=== PATIENT | female | born 2000 | race Caucasian/White ===

== ENCOUNTER 2021-12-21 01:39 | Emergency (ER) | payer MEDICAID, SELFPAY ==
--- NOTE | ~2021-12-21 | XR_ITS ---
EXAMINATION: XR SHOULDER, RIGHT CLINICAL INFORMATION: Dislocation COMPARISON: None TECHNIQUE: AP external rotation, Grashey, scapular Y, and axillary views of the right shoulder. FINDINGS: The bones and soft tissues are normal. No fracture. Glenohumeral and acromioclavicular alignment is anatomic with normal joint space. No abnormal soft tissue calcifications. XR/XR shoulder RT min 2V IMPRESSION: Normal right shoulder.
[2021-12-21 01:42] VITALS: BP 105/62; PULSE 90; RESP 18; TEMP 37.9; O2SAT 99; BMI 20.9
[2021-12-21 02:42] VITALS: BP 107/64; PULSE 74; O2SAT 97
--- NOTE | 2021-12-21 06:45 | ED.EXTPRO ---
HPI - Extremity Problem General Chief complaint: Extremity Injury, Upper Stated complaint: shoulder pain/possible dislocation Time Seen by Provider: 12/21/21 06:45 Related Data Allergies Allergy/AdvReac Type Severity Reaction Status Date / Time amoxicillin Allergy Rash Verified 12/21/21 01:48 PMFSH Social History Social History Advance Directives: No Physical Exam Vital Signs: Vital Signs: Last Vital Signs Temp 100.3 F 12/21/21 01:42 Pulse 74 12/21/21 02:42 Resp 18 12/21/21 01:42 BP 107/64 12/21/21 02:42 Pulse Ox 97 12/21/21 02:42 O2 Del Method 12/21/21 02:42 BMI result Body Mass Index 20.9
[2021-12-21 07:17] VITALS: BP 108/72; PULSE 82; RESP 14; TEMP 36.7; O2SAT 100
--- NOTE | 2021-12-21 08:26 | ED.EXTPRO ---
HPI - Extremity Problem General Chief complaint: Extremity Injury, Upper Stated complaint: shoulder pain/possible dislocation Time Seen by Provider: 12/21/21 06:45 History of Present Illness HPI Narrative: Patient is 21 years old complaining of a clicking in her right shoulder after movement. Patient denies any head injury. Denies any nausea vomiting. The pain is very localized to her shoulder happen after specific movement. No overt trauma. No history of similar pain a past Related Data Previous Rx's Medication Instructions Recorded ibuprofen 400 mg tablet 400 mg PO Q6H PRN pain #20 tabs 12/21/21 Allergies Allergy/AdvReac Type Severity Reaction Status Date / Time amoxicillin Allergy Rash Verified 12/21/21 01:48 Review of Systems Review of Systems: Positive right shoulder pain Yes all other systems are reviewed and are negative [facility] Past Medical History Attestation statement: The following information was validated with the patient. Social History Social History Advance Directives: No Physical Exam Vital Signs: Vital Signs: Last Vital Signs Temp 98.0 F 12/21/21 07:17 Pulse 82 12/21/21 07:17 Resp 14 12/21/21 07:17 BP 108/72 12/21/21 07:17 Pulse Ox 100 12/21/21 07:17 O2 Del Method 12/21/21 07:17 BMI result Body Mass Index 20.9 Appearance: Alert. Oriented X3. No acute distress. Eyes: Pupils equal, round and reactive to light. ENT: Pharynx normal. Neck: Normal inspection. Neck supple. No lymph nodes noted. No crepitus CVS: Normal heart rate and rhythm. Pulses normal. Normal S1 and S2 Respiratory: No respiratory distress. Breath sounds normal. No Wheezing. No rales Abdomen: Soft and nontender. No rigidity. No distention. good BS x4 Skin: Skin warm and dry. Normal skin color. Normal skin turgor. Extremities: Examination of the right shoulder range of motion grossly intact, sensation over the median radial ulnar and axillary nerves intact. Skin intact range of motion over elbow intact range of motion over the wrist intact there is no anatomical snuffbox tenderness. Neuro: Oriented X 3. No motor deficit. No sensory deficit. Moving all extermities. No slurred speech MDM - Extremity (Nontraumatic) MDM Narrative Medical decision making narrative: X-ray showed evidence of fracture or dislocation. Range of motion in tact pain has improved question sprain. Will discharge patient home. Discharge Plan Discharge Clinical Impression: Sprain of right shoulder Patient Disposition: Home, Self-Care Instructions: Shoulder Pain (ED) Prescriptions: New ibuprofen 400 mg tablet 400 mg PO Q6H PRN (Reason: pain) Qty: 20 0RF Referrals: Itz Matt MD [Physician] - 1 week
== END 2021-12-21 08:53 | disposition home or self-care (01) ==
PROVIDERS: Emergency Provider Emergency Medicine Emergency Medical Services
DX: S43.401A Unspecified sprain of right shoulder joint, initial encounter (principal); M25.511 Pain in right shoulder; X58.XXXA Exposure to other specified factors, initial encounter; Y93.9 Activity, unspecified; Y92.9 Unspecified place or not applicable; Y99.9 Unspecified external cause status
CPT/HCPCS: 73030; 99283

== ENCOUNTER 2022-05-17 08:25 | Emergency (ER) | payer MEDICAID, SELFPAY ==
--- NOTE | ~2022-05-17 | US_ITS ---
EXAMINATION: US RETROPERITONEAL LIMITED (RENAL ONLY) CLINICAL INFORMATION: Recent UTI rule out pyelonephritis versus stone.. COMPARISON: None TECHNIQUE: Curvilinear transducer ultrasound utilized bilateral renal ultrasound performed. FINDINGS: RIGHT KIDNEY: 10.6 x 6.1 x 5.6 cm (SAG x AP x TRV). The kidney is normal in size, contour, and echogenicity. Renal cortical thickness is normal. No calculi or focal parenchymal lesions. No hydronephrosis. LEFT KIDNEY: 10.8 x 6.3 x 4.5 cm (SAG x AP x TRV). The kidney is normal in size, contour, and echogenicity. Renal cortical thickness is normal. No calculi or focal parenchymal lesions. No hydronephrosis. US/US renal BI IMPRESSION: Normal bilateral renal ultrasound, no ultrasound evidence of pyelonephritis or stones. No hydronephrosis..
[2022-05-17 08:29] VITALS: BP 126/75; PULSE 107; RESP 16; TEMP 36.4; O2SAT 99; BMI 21.3
[2022-05-17 08:46] LABS: MANUAL DIFF FLAG NO
[2022-05-17 08:48] LABS: Appearance Urine Cloudy; Color Urine Yellow; Glucose Urine UA Negative (Negative); Leukocyte Esterase Urine Moderate (2+) (Negative); Nitrite Urine Negative (Negative); PH 5.5 (5.0-9.0); Specific Gravity - Urine 1.015 (1.005-1.025); UMIC TRIGGER UACC YES; Urine Blood Small (1+) (Negative); Urine Ketones Negative (Negative); Urine Protein 30 (1+) mg/dL (Neg-Trace)
[2022-05-17 08:49] LABS: UPreg QC Valid YES; Urine Pregnancy NEGATIVE (NEGATIVE)
[2022-05-17 08:50] LABS: Basophils Percent Auto 0.1 % (0-2); Eosinophils Absolute Auto 0.1 X10*3/uL (0.0-0.4); Eosinophils Percent Auto 1.1 % (0-4); Hemoglobin 12.9 g/dl (12.0-16.0); Imm Gran Abs Auto 0.02 X10*3/uL (0.00-0.03); Imm Gran Pct Auto 0.2 % (0.0-0.4); Lymphocytes Absolute Auto 1.8 X10*3/uL (1.2-4.9); Lymphocytes Percent Auto 21.7 % (20-40); Mean Corpuscular HGB Conc 33.1 g/dl (31.0-35.0); Mean Corpuscular Hemoglobin 28.2 pg (27.0-33.0); Mean Corpuscular Volume 85.3 fL (80.0-98.0); Mean Platelet Volume 9.5 fL (9.4-12.3); Monocytes Absolute Auto 0.7 X10*3/uL (0.1-1.2); Monocytes Percent Auto 8.9 % (2-11); Neutrophils Absolute Auto 5.6 x10*3/uL (2.0-8.3); Platelet Count 235 X10*3/uL (160-400); Red Blood Count 4.57 X10*6/uL (4.20-5.50); Red Cell Distribution Width 13.1 % (11.0-16.0); White Blood Count 8.2 X10*3/uL (4.8-10.8)
[2022-05-17 08:53] LABS: Bacteria Urine None Seen (None Seen); Hyaline Casts Urine 0-2 /LPF (0-2); UACC Culture Trigger YES; WBC Urine >50 /HPF (0-5)
[2022-05-17 08:58] VITALS: BP 107/56; PULSE 69; RESP 17; TEMP 36.8; O2SAT 98
--- NOTE | 2022-05-17 09:09 | ED_ITS ---
HPI - Abdominal Pain General Chief Complaint: Abdominal Pain Stated Complaint: UTI, worsening pain Time Seen by Provider: 05/17/22 08:56 Source: patient Mode of arrival: ambulatory History of Present Illness HPI narrative: 21-year-old with past medical history of gastritis, recently diagnosed UTI 2 weeks ago, finished Macrobid/Pyridium without relief, presenting to the ED complaining left upper abdominal/left flank pain x1 week. Reports pain initially started in RLQ then migrated to left abdomen. Denies nausea, vomiting, diarrhea, constipation, dysuria/hematuria, vaginal bleeding/discharge MD elicited complaint: abdominal pain Related Data Previous Rx's Medication Instructions Recorded ibuprofen 400 mg tablet 400 mg PO Q6H PRN pain #20 tabs 12/21/21 cefpodoxime 200 mg tablet 200 mg PO BID 10 days #20 tabs 05/17/22 Allergies Allergy/AdvReac Type Severity Reaction Status Date / Time amoxicillin Allergy Rash Verified 12/21/21 01:48 Review of Systems Review of Systems Constitutional: No Fever, No Chills, No Fatigue, No Malaise ENT/Mouth: No Ear Pain, No Nasal Congestion, No sore throat, No Rhinorrhea, No Swallowing Difficulty Eyes: No Eye Pain, No Swelling, No Redness, No Vision Changes Cardiovascular: No Chest Pain, No SOB, No Edema, No Palpitations Respiratory: No Cough, No Sputum, No Wheezing, No Dyspnea Gastrointestinal: No Nausea, No Vomiting, No Diarrhea, No Constipation, + Abdominal pain Genitourinary: No irregular bleeding, No Dysuria, No Urinary Frequency, No Hematuria, No Urinary Incontinence/retention, + Flank Pain Musculoskeletal: No joint pain, No Myalgias, No Joint Swelling Skin: No Skin Lesions, No rash Neuro: No Weakness, No Dizziness, No Headache Yes all other systems are reviewed and are negative Constitutional: Reports as per [facility] Past Medical History Attestation statement: The following information was validated with the patient. Social History Social History Smoked in Last 30 Days: No Use of substances other than those prescribed or required for medical reasons: No Advance Directives: No Advance Directives Information Provided: Yes Patient : No Physical Exam ED Vital Signs: Vital Signs - 24 hr 05/17/22 08:29 05/17/22 08:58 Temperature 97.5 F 98.3 F Pulse Rate 107 H 69 Respiratory Rate 16 17 Blood Pressure 126/75 107/56 L Pulse Oximetry 99 98 Oxygen Delivery Method Room Air Room Air BMI result Body Mass Index 21.3 Const General: cooperative, healthy appearing and no acute distress Orientation/consciousness: patient oriented x3 Limitations: no limitations HENMT Head: Yes normal to inspection and Yes atraumatic Ears: hearing grossly normal bilaterally General nose exam: Normal external nose present Face and sinus: Yes normal facial exam Eyes General: appearance normal, both eyes and all related structures EOM: EOMs intact bilaterally Neck Neck: Yes normal visual inspection and Yes no meningeal signs Resp Effort & Inspection: normal respiratory effort and no respiratory distress Auscultation: clear to auscultation bilaterally Cardio Rate: regular rate Heart sounds: S1 normal heart sound present and S2 normal heart sound present GI Inspection: Yes normal to inspection Palpation (GI): Soft to palpation, Tenderness to palpation present (GI) in the LLQ; with no rebound tenderness, no guarding and not rigid General: Yes CVA tenderness on the left Back/Spine/Pelvis Back: CVA tenderness Skin Rashes: no rashes Wounds: no wounds Neuro General: patient oriented x3, tone normal and no meningeal signs Gait exam (Neuro): Normal gait present Extrem General: Yes normal to inspection Course Course Course Narrative: -1005--no leukocytosis. Potassium mildly low at 3.1 p.o. repletion ordered. Labs otherwise reassuring. -UA contaminated however infected. US renal BI IMPRESSION: Normal bilateral renal ultrasound, no ultrasound evidence of pyelonephritis or stones. No hydronephrosis.. >> will treat patient for pyelonephritis. Results discussed with patient including worrisome signs and symptoms and strict return precautions, and when to return to the emergency department. They verba lized understanding and feel safe for discharge at this time. Medical Decision Making Medical Decision Making [facility] Narrative: 21-year-old with past medical history of gastritis, recently diagnosed UTI 2 weeks ago, finished Macrobid/Pyridium without relief, presenting to the ED complaining left upper abdominal/left flank pain x1 week. On exam vital signs stable, NAD, nontoxic appearing, abdomen soft with mild LUQ tenderness and left CVA tenderness noted, no rebound or guarding. Concern for pyelo vs renal stone. Lower suspicion for cholecystitis/lithiasis, diverticulitis, or appendicitis at this time. Lower suspicion for ovarian torsion/TOA Plan: Labs, UA, renal ultrasound, IVF, pain control, re-evaluate Please refer to course for remaining clinical decision making, interpretation of labs/imaging results, and discussions with consultants and/or family members. Differential Diagnosis Differential Diagnoses: The differential diagnosis associated with the presentation includes as above Lab Data MDM Lab Attestation statement: I reviewed the patient's lab results. 05/17/22 08:40 05/17/22 08:40 Labs: Lab Results 05/17/22 05/17/22 05/17/22 Range/Units 08:40 08:40 08:40 WBC 8.2 (4.8-10.8) X10*3/uL RBC 4.57 (4.20-5.50) X10*6/uL Hgb 12.9 (12.0-16.0) g/dl Hct 39.0 (37.0-47.0) % MCV 85.3 (80.0-98.0) fL MCH 28.2 (27.0-33.0) pg MCHC 33.1 (31.0-35.0) g/dl RDW 13.1 (11.0-16.0) % Plt Count 235 (160-400) X10*3/uL MPV 9.5 (9.4-12.3) fL Immature Gran % (Auto) 0.2 (0.0-0.4) % Neut % (Auto) 68.0 (45-73) % Lymph % (Auto) 21.7 (20-40) % [place] % (Auto) 8.9 (2-11) % Eos % (Auto) 1.1 (0-4) % Baso % (Auto) 0.1 (0-2) % Lymph # (Auto) 1.8 (1.2-4.9) X10*3/uL [place] # (Auto) 0.7 (0.1-1.2) X10*3/uL Eos # (Auto) 0.1 (0.0-0.4) X10*3/uL Baso # (Auto) 0.0 (0.0-0.2) X10*3/uL Abs Immat Gran (auto) 0.02 (0.00-0.03) X10*3/uL Absolute Neuts (auto) 5.6 (2.0-8.3) x10*3/uL Absolute Nucleated RBC 0.000 (0.0-0.012) X10*3/uL Nucleated RBC % (auto) 0.0 (0.0-0.2) /100WBC Sodium 139 (135-145) mmol/L Potassium 3.1 L (3.3-5.1) mmol/L Chloride 102 (96-108) mmol/L Carbon Dioxide 28 (22-29) mmol/L Anion Gap 12 (12-20) BUN 6 L (9-16) mg/dL Creatinine 0.81 (0.5-1.4) mg/dL Estim Creat Clear Calc 82.2 Estimated GFR > 60 Random Glucose 107 (60-115) mg/dL Calcium 8.6 (8.4-10.2) mg/dL Total Bilirubin 0.7 (0.0-1.0) mg/dL AST 14 (5-31) U/L ALT 14 (0-31) U/L Alkaline Phosphatase 81 (39-117) U/L Total Protein 6.9 (6.5-8.0) g/dL Albumin 4.2 (3.5-5.0) g/dL Lipase 16 (8-78) U/L Urine Color Yellow Urine Appearance Cloudy Urine pH 5.5 (5.0-9.0) Ur Specific [place] 1.015 (1.005-1.025) Urine Protein 30 (1+) H (Neg-Trace) mg/dL Urine Glucose (UA) Negative (Negative) mg/dL Urine Ketones Negative (Negative) mg/dL Urine Blood Small (1+) H (Negative) Urine Nitrite Negative (Negative) Ur Leukocyte Esterase Moderate (2+) H (Negative) Urine RBC 6-10 H (0-2) /HPF Urine WBC >50 H (0-5) /HPF Ur Squamous Epith Cells 6-10 (0-2) /HPF Urine Bacteria None Seen (None Seen) Hyaline Casts 0-2 (0-2) /LPF Urine Test (NEGATIVE) 05/17/22 Range/Units 08:40 WBC (4.8-10.8) X10*3/uL RBC (4.20-5.50) X10*6/uL Hgb (12.0-16.0) g/dl Hct (37.0-47.0) % MCV (80.0-98.0) fL MCH (27.0-33.0) pg MCHC (31.0-35.0) g/dl RDW (11.0-16.0) % Plt Count (160-400) X10*3/uL MPV (9.4-12.3) fL Immature Gran % (Auto) (0.0-0.4) % Neut % (Auto) (45-73) % Lymph % (Auto) (20-40) % [place] % (Auto) (2-11) % Eos % (Auto) (0-4) % Baso % (Auto) (0-2) % Lymph # (Auto) (1.2-4.9) X10*3/uL [place] # (Auto) (0.1-1.2) X10*3/uL Eos # (Auto) (0.0-0.4) X10*3/uL Baso # (Auto) (0.0-0.2) X10*3/uL Abs Immat Gran (auto) (0.00-0.03) X10*3/uL Absolute Neuts (auto) (2.0-8.3) x10*3/uL Absolute Nucleated RBC (0.0-0.012) X10*3/uL Nucleated RBC % (auto) (0.0-0.2) /100WBC Sodium (135-145) mmol/L Potassium (3.3-5.1) mmol/L Chloride (96-108) mmol/L Carbon Dioxide (22-29) mmol/L Anion Gap (12-20) BUN (9-16) mg/dL Creatinine (0.5-1.4) mg/dL Estim Creat Clear Calc Estimated GFR Random Glucose (60-115) mg/dL Calcium (8.4-10.2) mg/dL Total Bilirubin (0.0-1.0) mg/dL AST (5-31) U/L ALT (0-31) U/L Alkaline Phosphatase (39-117) U/L Total Protein (6.5-8.0) g/dL Albumin (3.5-5.0) g/dL Lipase (8-78) U/L Urine Color Urine Appearance Urine pH (5.0-9.0) Ur Specific [place] (1.005-1.025) Urine Protein (Neg-Trace) mg/dL Urine Glucose (UA) (Negative) mg/dL Urine Ketones (Negative) mg/dL Urine Blood (Negative) Urine Nitrite (Negative) Ur Leukocyte Esterase (Negative) Urine RBC (0-2) /HPF Urine WBC (0-5) /HPF Ur Squamous Epith Cells (0-2) /HPF Urine Bacteria (None Seen) Hyaline Casts (0-2) /LPF Urine Test NEGATIVE (NEGATIVE) Radiology Impression Discussion of test interpretation with radiology: I have reviewed the radiologist's reading. Prescription Management I considered prescription management with: Pain Medication and Antibiotic Medications Administered Discontinued Medications Generic Name Dose Route Start Last Admin Trade Name Freq PRN Reason Stop Dose Admin Sodium Chloride 1,000 mls @ 999 mls/hr 05/17/22 09:30 05/17/22 09:42 Ns IV 05/17/22 10:30 999 mls/hr .Q1H1M BLU Administration Ketorolac Tromethamine 15 mg 05/17/22 09:17 05/17/22 09:43 Ketorolac Tromethamine 15 Mg/Ml Vial IVPUSH 05/17/22 09:18 15 mg ONCE ONE Administration Potassium Chloride 40 meq 05/17/22 10:06 05/17/22 10:28 Potassium Chloride Er 20 Meq Tab.Er.Prt PO 05/17/22 10:07 40 meq ONCE ONE Administration Discharge Plan Discharge Clinical Impression: Pyelonephritis Patient Disposition: Home, Self-Care Instructions: Kidney Infection (ED) Additional Instructions: Your blood work was reassuring, your potassium was mildly low however we replated that today Her urine is still infected, with her back pain we are treating for a kidney infection. Cefpodoxime is an antibiotic please take as prescribed. Take Tylenol and ibuprofen as needed for pain. Lots of fluids. Follow-up with her doctor If symptoms persist or worsen return to the ED Your ultrasound was unremarkable Prescriptions: New cefpodoxime 200 mg tablet 200 mg PO BID 10 Days Qty: 20 0RF Rx Instructions: must administer with a meal/food No Action ibuprofen 400 mg tablet 400 mg PO Q6H PRN (Reason: pain) Qty: 20 0RF Referrals: Physician,Unknown J [Primary Care Provider] - 3 days Stand Alone Forms: Work/School Release Interventions: ED Discharge Assessment Last Done: 05/17/22 10:31 Discharge Date/Time: 05/17/22 10:32
[2022-05-17] MEDS: 0.9 % Sodium Chloride 1,000 ML 999 ML IV (09:42)
[2022-05-17] MEDS: Ketorolac Tromethamine 15 MG/ML VIAL IVPUSH (09:43)
[2022-05-17 09:55] LABS: Alanine Aminotransferase 14 U/L (0-31); Albumin Level 4.2 g/dL (3.5-5.0); Alkaline Phosphatase 81 U/L (39-117); Anion Gap 12 (12-20); Aspartate Amino Transferase 14 U/L (5-31); Bilirubin Total 0.7 mg/dL (0.0-1.0); Blood Urea Nitrogen 6 mg/dL (9-16); Calcium 8.6 mg/dL (8.4-10.2); Carbon Dioxide 28 mmol/L (22-29); Chloride 102 mmol/L (96-108); Creatinine Clr Calc Pharmacy 82.2; Estimated Glomerular Filt Rate > 60; Glucose Random 107 mg/dL (60-115); Lipase 16 U/L (8-78); Potassium 3.1 mmol/L (3.3-5.1); Sodium 139 mmol/L (135-145); Total Protein 6.9 g/dL (6.5-8.0)
[2022-05-17] MEDS: Potassium Chloride ER 20 MEQ TAB.ER.PRT 40 MEQ PO (10:28)
== END 2022-05-17 10:32 | disposition home or self-care (01) ==
PROVIDERS: Physician Assistant; Emergency Provider Emergency Medicine
DX: N12 Tubulo-interstitial nephritis, not specified as acute or chronic (principal); N39.0 Urinary tract infection, site not specified; Z79.899 Other long term (current) drug therapy
CPT/HCPCS: 36415; 76775; 80053; 81001; 81025; 83690; 85025; 87086; 99285; J1885

== ENCOUNTER 2022-09-26 11:23 | Emergency (ER) | payer MEDICAID, SELFPAY ==
[2022-09-26 11:39] VITALS: BP 113/68; PULSE 72; RESP 19; TEMP 36.1; O2SAT 99; BMI 20.3
--- NOTE | 2022-09-26 11:39 | ED_ITS ---
HPI - Abdominal Pain General Chief Complaint: Abdominal Pain Stated Complaint: r side abd pain Time Seen by Provider: 09/26/22 12:41 Source: patient and RN notes reviewed Mode of arrival: ambulatory Limitations: no limitations History of Present Illness HPI narrative: This is a 22-year-old female presenting to the emergency department with ongoing right-sided abdominal pain for many months. Patient reports that her symptoms are intermittent, this last episode has been occurring for the last week. Patient reports associated nausea. She also states that she has had a productive cough with green-colored sputum, chills, and a sore throat. Patient states that since she had her gallbladder removed 1 year ago she has had ongoing problems with her abdomen this pain. Patient has had an upper endoscopy which w as unremarkable. Patient reports intermittent problems with constipation, typically takes laxatives. Last bowel movement was yesterday was normal. Patient denies fevers, chills, chest pain, palpitations edema shortness of breath, urinary symptoms. No other complaints or concerns at this time MD elicited complaint: abdominal pain Pertinent past history: none Onset (ago): week(s) Pain Consistency: intermittent Location: none Quality: cramping Radiation: none Migration to: no migration Exacerbating factors: nothing Relieving factors: nothing Associated symptoms: nausea Related Data Previous Rx's Medication Instructions Recorded ibuprofen 400 mg tablet 400 mg PO Q6H PRN pain #20 tabs 12/21/21 cefpodoxime 200 mg tablet 200 mg PO BID 10 days #20 tabs 05/17/22 cefuroxime axetil 250 mg tablet 250 mg PO BID 5 days #10 tabs 09/26/22 Allergies Allergy/AdvReac Type Severity Reaction Status Date / Time amoxicillin Allergy Rash Verified 12/21/21 01:48 Review of Systems Review of Systems Constitutional: No Weight loss, No Fever, No Chills ENT/Mouth: No Ear Pain, No Nasal Congestion, No Sinus Pain, No Hoarseness, + sore throat, No Rhinorrhea, No Swallowing Difficulty Cardiovascular: No Chest Pain, No SOB Respiratory: +Cough, No Sputum, No Wheezing Gastrointestinal: +Nausea, + Vomiting, No Diarrhea, + Constipation, + Abdominal pain Genitourinary: No Dysuria, No Urinary Frequency, No Hematuria, No Urinary Incontinence/retention, No Urgency, No Flank Pain Musculoskeletal: No joint pain, No Myalgias, No Joint Swelling Skin: No Skin Lesions, No rash Neuro: No Weakness, No Numbness, No Paresthesias Yes all other systems are reviewed and are negative Constitutional: Reports as per [facility] Social History Social History Alcohol intake: never Smoked in Last 30 Days: No Advance Directives: No Advance Directives Information Provided: Yes Physical Exam ED Vital Signs: Vital Signs - 24 hr 09/26/22 11:39 09/26/22 12:39 Temperature 97.0 F 98.6 F Pulse Rate 72 64 Respiratory Rate 19 14 Blood Pressure 113/68 120/83 Pulse Oximetry 99 99 Oxygen Delivery Method Room Air Room Air BMI result Body Mass Index 20.3 Const General: cooperative, comfortable and no acute distress Orientation/consciousness: patient oriented x3 Limitations: no limitations HENMT Head: Yes normal to inspection, Yes normocephalic and Yes atraumatic Ears: hearing grossly normal bilaterally General nose exam: Normal external nose present Face and sinus: Yes normal facial exam Mouth: Normal oral and palatal mucosa present, oropharynx normal and moist mucous membranes Throat: Yes posterior oropharynx normal Eyes General: appearance normal, both eyes and all related structures Eyelids: Yes eyelids normal Conjunctivae: conjunctivae normal Sclerae: sclerae normal Pupils: Equal, round and reactive pupils present EOM: EOMs intact bilaterally Neck Neck: Yes normal visual inspection, Yes full ROM and Yes no lymphadenopathy Lymphatic: no lymphadenopathy noted Chest Chest palpation & inspection: normal inspection of the chest Resp Effort & Inspection: normal respiratory effort and able to speak in complete sentences Auscultation: clear to auscultation bilaterally, no crackles, no rales, no rhonchi and no wheezes Cardio Rate: regular rate Rhythm: regular rhythm Heart sounds: S1 normal heart sound present and S2 normal heart sound present GI Other: Abdomen is soft, nondistended, nontender to palpation, normoactive bowel sounds present in all 4 quadrants. Inspection: Yes normal to inspection Skin General skin exam: no rashes or lesions noted Trauma: no lacerations or abrasions Wounds: no wounds Neuro General: patient oriented x3 and moves all extremities Cranial nerves: Yes Equal, round and reactive pupils present Extrem General: Yes normal to inspection Right upper extremity: normal to inspection Left upper extremity: normal to inspection Right lower extremity: normal to inspection Left lower extremity: normal to inspection Course Course Course Narrative: RME: 22yo F w/gastritis, frequent UTIs, cholecystectomy PMHx c/o right sided abdominal pain x awhile worsening over the past few weeks w/radiation to back. Also reports nausea, weight loss, & productive cough. denies dysuria, hematuria. Admits had outpatietn labs drawn yesterday at [facility] Abdomen soft +epigastric/RUQ ttp, no rebouond or guarding Labs, UA, U-preg, Abdomen US, CXR ordered Full HPI, ROS and PE to be performed by primary ED provider. Reevaluation(s) Reevaluation #1: Ultrasound unremarkable, pending urinalysis, hCG, chest x-ray unremarkable. Time: 14:19 Reevaluation #2: UA appears to be infected, will treat with cefuroxime 250 mg b.i.d.. Advised patient to follow-up with GI specialist as patient is on ongoing GI problems for the last year. Patient understands and agrees with plan. Educated to return for any red flag symptoms. Patient stable for discharge. Time: 16:19 Medical Decision Making Medical Decision Making [facility] Narrative: 22-year-old female presenting to the emergency department for evaluation of nausea, abdominal pain. Symptoms have been ongoing for months, most recent over this past week. Patient has had no fevers or chills. On exam, abdomen is benign, nontender, soft. Vital signs within normal limits. Patient also complaining of cough with green-colored sputum over the last couple of days with sore throat. Patient has no urinary symptoms or abnormal vaginal discharge. She is sexually active. Plan labs, UA, COVID, chest x-ray, ultrasound Differential Diagnosis Differential Diagnoses: The differential diagnosis associated with the presentation includes Gastroenteritis, gastritis, small-bowel obstruction, UTI, pyelonephritis, constipation Lab Data [facility] Lab Attestation statement: I reviewed the patient's lab results. 09/26/22 11:53 09/26/22 11:53 Labs: Lab Results 09/26/22 09/26/22 09/26/22 Range/Units 11:53 11:53 11:53 WBC 6.8 (4.8-10.8) X10*3/uL RBC 4.87 (4.20-5.50) X10*6/uL Hgb 13.8 (12.0-16.0) g/dl Hct 42.9 (37.0-47.0) % MCV 88.1 (80.0-98.0) fL MCH 28.3 (27.0-33.0) pg MCHC 32.2 (31.0-35.0) g/dl RDW 14.0 (11.0-16.0) % Plt Count 226 (160-400) X10*3/uL MPV 9.6 (9.4-12.3) fL Immature Gran % (Auto) 0.3 (0.0-0.4) % Neut % (Auto) 55.1 (45-73) % Lymph % (Auto) 37.4 (20-40) % [place] % (Auto) 5.6 (2-11) % Eos % (Auto) 1.5 (0-4) % Baso % (Auto) 0.1 (0-2) % Lymph # (Auto) 2.5 (1.2-4.9) X10*3/uL [place] # (Auto) 0.4 (0.1-1.2) X10*3/uL Eos # (Auto) 0.1 (0.0-0.4) X10*3/uL Baso # (Auto) 0.0 (0.0-0.2) X10*3/uL Abs Immat Gran (auto) 0.02 (0.00-0.03) X10*3/uL Absolute Neuts (auto) 3.8 (2.0-8.3) x10*3/uL Absolute Nucleated RBC 0.000 (0.0-0.012) X10*3/uL Nucleated RBC % (auto) 0.0 (0.0-0.2) /100WBC Sodium 140 (135-145) mmol/L Potassium 3.7 (3.3-5.1) mmol/L Chloride 105 (96-108) mmol/L Carbon Dioxide 27 (22-29) mmol/L Anion Gap 12 (12-20) BUN 6 L (9-16) mg/dL Creatinine 0.77 (0.5-1.4) mg/dL Estim Creat Clear Calc 85.7 Estimated GFR > 60 Random Glucose 70 (60-115) mg/dL Calcium 9.4 D (8.4-10.2) mg/dL Magnesium 1.9 (1.6-2.6) mg/dL Total Bilirubin 0.3 (0.0-1.0) mg/dL Direct Bilirubin 0.1 (0.0-0.5) mg/dL AST 21 (5-31) U/L ALT 25 (0-31) U/L Alkaline Phosphatase 72 (39-117) U/L Total Protein 6.9 (6.5-8.0) g/dL Albumin 4.1 (3.5-5.0) g/dL Lipase 19 (8-78) U/L Urine Color Urine Appearance Urine pH (5.0-9.0) Ur Specific [place] (1.005-1.025) Urine Protein (Neg-Trace) mg/dL Urine Glucose (UA) (Negative) mg/dL Urine Ketones (Negative) mg/dL Urine Blood (Negative) Urine Nitrite (Negative) Ur Leukocyte Esterase (Negative) Urine RBC (0-2) /HPF Urine WBC (0-5) /HPF Ur Squamous Epith Cells (0-2) /HPF Urine Bacteria (None Seen) Hyaline Casts (0-2) /LPF Urine Test (NEGATIVE) Chlam trachomat DNA PCR (Not Detect.) COVID-19 (RANDY) Negative (Negative) COVID-19 Clin Com See Note N.gonorrhoeae DNA (PCR) (Not Detect.) S. pyogenes GrpA ADE (Negative) 09/26/22 09/26/22 09/26/22 Range/Units 14:25 14:25 14:25 WBC (4.8-10.8) X10*3/uL RBC (4.20-5.50) X10*6/uL Hgb (12.0-16.0) g/dl Hct (37.0-47.0) % MCV (80.0-98.0) fL MCH (27.0-33.0) pg MCHC (31.0-35.0) g/dl RDW (11.0-16.0) % Plt Count (160-400) X10*3/uL MPV (9.4-12.3) fL Immature Gran % (Auto) (0.0-0.4) % Neut % (Auto) (45-73) % Lymph % (Auto) (20-40) % [place] % (Auto) (2-11) % Eos % (Auto) (0-4) % Baso % (Auto) (0-2) % Lymph # (Auto) (1.2-4.9) X10*3/uL [place] # (Auto) (0.1-1.2) X10*3/uL Eos # (Auto) (0.0-0.4) X10*3/uL Baso # (Auto) (0.0-0.2) X10*3/uL Abs Immat Gran (auto) (0.00-0.03) X10*3/uL Absolute Neuts (auto) (2.0-8.3) x10*3/uL Absolute Nucleated RBC (0.0-0.012) X10*3/uL Nucleated RBC % (auto) (0.0-0.2) /100WBC Sodium (135-145) mmol/L Potassium (3.3-5.1) mmol/L Chloride (96-108) mmol/L Carbon Dioxide (22-29) mmol/L Anion Gap (12-20) BUN (9-16) mg/dL Creatinine (0.5-1.4) mg/dL Estim Creat Clear Calc Estimated GFR Random Glucose (60-115) mg/dL Calcium (8.4-10.2) mg/dL Magnesium (1.6-2.6) mg/dL Total Bilirubin (0.0-1.0) mg/dL Direct Bilirubin (0.0-0.5) mg/dL AST (5-31) U/L ALT (0-31) U/L Alkaline Phosphatase (39-117) U/L Total Protein (6.5-8.0) g/dL Albumin (3.5-5.0) g/dL Lipase (8-78) U/L Urine Color Yellow Urine Appearance Clear Urine pH 7.5 (5.0-9.0) Ur Specific [place] 1.025 (1.005-1.025) Urine Protein 30 (1+) H (Neg-Trace) mg/dL Urine Glucose (UA) Negative (Negative) mg/dL Urine Ketones Negative (Negative) mg/dL Urine Blood Large (3+) H (Negative) Urine Nitrite Positive H (Negative) Ur Leukocyte Esterase Small (1+) H (Negative) Urine RBC >20 H (0-2) /HPF Urine WBC 6-10 H (0-5) /HPF Ur Squamous Epith Cells 3-5 (0-2) /HPF Urine Bacteria 4+ (None Seen) Hyaline Casts 0-2 (0-2) /LPF Urine Test NEGATIVE (NEGATIVE) Chlam trachomat DNA PCR (Not Detect.) COVID-19 ([facility]Y) (Negative) COVID-19 Clin Com N.gonorrhoeae DNA (PCR) (Not Detect.) S. pyogenes GrpA ADE Negative (Negative) 09/26/22 Range/Units 14:25 WBC (4.8-10.8) X10*3/uL RBC (4.20-5.50) X10*6/uL Hgb (12.0-16.0) g/dl Hct (37.0-47.0) % MCV (80.0-98.0) fL MCH (27.0-33.0) pg MCHC (31.0-35.0) g/dl RDW (11.0-16.0) % Plt Count (160-400) X10*3/uL MPV (9.4-12.3) fL Immature Gran % (Auto) (0.0-0.4) % Neut % (Auto) (45-73) % Lymph % (Auto) (20-40) % [place] % (Auto) (2-11) % Eos % (Auto) (0-4) % Baso % (Auto) (0-2) % Lymph # (Auto) (1.2-4.9) X10*3/uL [place] # (Auto) (0.1-1.2) X10*3/uL Eos # (Auto) (0.0-0.4) X10*3/uL Baso # (Auto) (0.0-0.2) X10*3/uL Abs Immat Gran (auto) (0.00-0.03) X10*3/uL Absolute Neuts (auto) (2.0-8.3) x10*3/uL Absolute Nucleated RBC (0.0-0.012) X10*3/uL Nucleated RBC % (auto) (0.0-0.2) /100WBC Sodium (135-145) mmol/L Potassium (3.3-5.1) mmol/L Chloride (96-108) mmol/L Carbon Dioxide (22-29) mmol/L Anion Gap (12-20) BUN (9-16) mg/dL Creatinine (0.5-1.4) mg/dL Estim Creat Clear Calc Estimated GFR Random Glucose (60-115) mg/dL Calcium (8.4-10.2) mg/dL Magnesium (1.6-2.6) mg/dL Total Bilirubin (0.0-1.0) mg/dL Direct Bilirubin (0.0-0.5) mg/dL AST (5-31) U/L ALT (0-31) U/L Alkaline Phosphatase (39-117) U/L Total Protein (6.5-8.0) g/dL Albumin (3.5-5.0) g/dL Lipase (8-78) U/L Urine Color Urine Appearance Urine pH (5.0-9.0) Ur Specific [place] (1.005-1.025) Urine Protein (Neg-Trace) mg/dL Urine Glucose (UA) (Negative) mg/dL Urine Ketones (Negative) mg/dL Urine Blood (Negative) Urine Nitrite (Negative) Ur Leukocyte Esterase (Negative) Urine RBC (0-2) /HPF Urine WBC (0-5) /HPF Ur Squamous Epith Cells (0-2) /HPF Urine Bacteria (None Seen) Hyaline Casts (0-2) /LPF Urine Test (NEGATIVE) Chlam trachomat DNA PCR NOT DETECTED (Not Detect.) COVID-19 ([facility]Y) (Negative) COVID-19 Clin Com N.gonorrhoeae DNA (PCR) NOT DETECTED (Not Detect.) S. pyogenes GrpA ADE (Negative) Radiology Impression Discussion of test interpretation with radiology: I have reviewed the radiolo gist's reading. Radiologist Impression: EXAMINATION: US ABDOMEN LIMITED CLINICAL INFORMATION: Right upper quadrant flank and epigastric pain.. COMPARISON: None available. TECHNIQUE: Real-time imaging of the right upper quadrant abdominal viscera. FINDINGS: PANCREAS: Normal. LIVER: Normal. The liver is normal in size. The liver contour is normal. Parenchymal echogenicity is normal. No focal hepatic lesion. There is no intrahepatic biliary duct dilatation seen. GALLBLADDER: The gallbladder is not visualized consistent with cholecystectomy.. COMMON BILE DUCT: Normal in caliber measuring 0.34 cm in diameter. RIGHT KIDNEY: Normal. No hydronephrosis. No renal calculi or focal parenchymal lesions. The kidney measures 10.5 cm in maximum dimension. FREE FLUID: None. US/US abdomen limited IMPRESSION: The gallbladder has been surgically removed. ? Liver, pancreas, right kidney and CBD appears unremarkable. Dictated By: Tamir Kendall MD External Record Review External record reviewed: Inpatient record, Office record, Outpatient record, Prior outpatient labs, Prior outpatient radiology, Primary care record and Outside ED record Discharge Plan Discharge Clinical Impression: UTI (urinary tract infection), Abdominal pain Patient Disposition: Home, Self-Care Instructions: Urinary Tract Infection in Women (ED) Additional Instructions: Your urine appear to be infected. Take prescribed antibiotic as directed. Please complete full course even if your feeling better. Your labs were reassuring. Your abdominal ultrasound and chest x-ray were normal. Drink plenty of fluids get plenty of rest. If any new or worsening symptoms occur, please return for re-evaluation. You should follow-up with GI, you can call previously seen GI specialist or refer GI specialist given today, as you have had abdominal pain intermittently for the last year. Call Wednesday to make an appointment. Prescriptions: New cefuroxime axetil 250 mg tablet 250 mg PO BID 5 Days Qty: 10 0RF No Action ibuprofen 400 mg tablet 400 mg PO Q6H PRN (Reason: pain) Qty: 20 0RF cefpodoxime 200 mg tablet 200 mg PO BID 10 Days Qty: 20 0RF Rx Instructions: must administer with a meal/food Referrals: [facility] [Provider Group]
[2022-09-26 12:39] VITALS: BP 120/83; PULSE 64; RESP 14; TEMP 37; O2SAT 99
--- NOTE | 2022-09-26 12:43 | PC.NURSE ---
alert and oriented, resp even and unlabored. complaining of diffuse right sided abdominal pain, unable to pinpoint the pain. states it has been ongoing for some time.
== END 2022-09-26 16:26 | disposition home or self-care (01) ==
PROVIDERS: Emergency Provider Emergency Medicine
DX: N39.0 Urinary tract infection, site not specified (principal); B96.20 Unspecified Escherichia coli [E. coli] as the cause of diseases classified elsewhere; R10.9 Unspecified abdominal pain; Z20.822 Contact with and (suspected) exposure to COVID-19
CPT/HCPCS: 0353U; 71046; 76705; 80048; 80076; 81001; 81025; 83690; 83735; 85025; 87086; 87088; 87186; 87635; 87651; 99284

== ENCOUNTER 2024-08-09 10:17 | Emergency (ER) | payer MEDICAID, SELFPAY ==
--- NOTE | ~2024-08-09 | US_ITS ---
EXAMINATION: US PELVIS CLINICAL INFORMATION: Right-sided pelvic pain. History of TOA. COMPARISON: None available. TECHNIQUE: Ultrasound of the pelvis is performed using both transabdominal and transvaginal transducers along with Doppler. Transvaginal imaging is performed due to inadequate visualization transabdominally. FINDINGS: Uterus: The uterus is anteverted, retroflexed, and measures 7.4 x 3.9 x 4.9 cm. Cervix has a normal sonographic appearance. The double wall endometrial thickness is 5 mm. It is uniform without irregularity. The uterus is smooth in contour and has normal myometrial echogenicity. No visible fibroid. Adnexa: Both ovaries are visualized. There is normal color flow to the adnexa. There is no ovarian torsion. There is no pelvic ascites or fluid collection. Right ovary measures 3.2 x 3.0 x 2.3 cm. Volume = 11.6 mL. Normal sonographic appearance. Left ovary measures 2.6 x 2.5 x 2.1 cm. Volume = 7.2 mL. Normal sonographic appearance. US/US pelvic and transvaginal IMPRESSION: Normal pelvic ultrasound. No etiology seen for right pelvic pain. Electronically signed by: Fernando Carbajal MD 08/09/2024 01:45 PM EDT
[2024-08-09 10:38] VITALS: BP 119/79; PULSE 100; RESP 16; TEMP 36.3; O2SAT 98; BMI 19.5
--- NOTE | 2024-08-09 11:49 | ED.FEMALEGU ---
HPI - Female Genitourinary General Chief complaint: Vaginal Bleeding Stated complaint: Vaginal Discomfort Time Seen by Provider: 08/09/24 12:44 Source: patient, RN notes reviewed and old records reviewed Mode of arrival: ambulatory Limitations: no limitations History of Present Illness ED Provider: Martha SHEA Narrative: Patient is a 23-year-old female with history of TOA presenting to the emergency department with complaint of vaginal pain and abnormal discharge, this morning noted sores. Initially attributed pain to her period which just ended. Denies any new sexual partners. Denies fevers, nausea, vomiting, diarrhea. MD elicited complaint: vaginal discharge, pelvic pain, possible STD and genital rash Related Data Previous Rx's ?Medication ?Instructions ?Recorded ibuprofen 400 mg tablet 400 mg PO Q6H PRN pain #20 tabs 12/21/21 cefpodoxime 200 mg tablet 200 mg PO BID 10 days #20 tabs 05/17/22 cefuroxime axetil 250 mg tablet 250 mg PO BID 5 days #10 tabs 09/26/22 doxycycline hyclate 100 mg capsule 100 mg PO BID #13 caps 08/09/24 valacyclovir 1 gram tablet 1,000 mg PO BID #19 tabs 08/09/24 Allergies Allergy/AdvReac Type Severity Reaction Status Date / Time amoxicillin Allergy Rash Verified 08/09/24 10:39 Review of Systems Review of Systems: As per HPI Yes all other systems are reviewed and are negative Constitutional: Constitutional: Reports as per HPI [facility] Social History Social History Alcohol intake: never Advance Directives: No Advance Directives Information Provided: Yes Do you have a plan to hurt others: No Plan Patient : No Physical Exam Vital Signs: Vital Signs: Last Vital Signs Temp 98.4 F 08/09/24 15:22 Pulse 74 08/09/24 15:22 Resp 14 08/09/24 15:22 BP 106/75 08/09/24 15:22 Pulse Ox 98 08/09/24 15:22 O2 Del Method Room Air 08/09/24 15:22 BMI result Body Mass Index 19.5 Vital signs have been reviewed and appear to be correct. Blood pressure normal. Heart rate normal. Respiratory rate normal. Temperature normal. Oxygen saturation normal. Const: General: cooperative, healthy appearing and no acute distress Orientation/consciousness: oriented to person, oriented to place, oriented to time and patient oriented x3 Limitations: no limitations HEENT: Head: Yes normocephalic and Yes atraumatic Ears: external ears normal General nose exam: Normal external nose present Face and sinus: Yes face symmetric Mouth: oropharynx normal and moist mucous membranes Throat: Yes uvula midline Eyes: Pupils: Equal, round and reactive pupils present Neck: Neck: Yes normal visual inspection and Yes supple Resp: Effort & Inspection: normal respiratory effort and able to speak in complete sentences Auscultation: clear to auscultation bilaterally Cardio: Rate: regular rate Rhythm: regular rhythm Heart sounds: S1 normal heart sound present and S2 normal heart sound present GI: Palpation (GI): Soft to palpation and Tenderness to palpation present (GI) in the RLQ Auscultation: normoactive bowel sounds : Other: Pelvic exam chaperoned by CHIP Roldan General: Yes no CVA tenderness Speculum Exam - Vagina: abnormal vaginal discharge yellow, lesion bilateral vesicle and No vaginal bleeding Speculum Exam - Cervix: Cervical os closed, Abnormal cervical discharge present yellow and Cervical tenderness present Bimanual exam- vagina & uterus: Cervical tenderness present OB/external & speculum: No vaginal bleeding Back/Spine/Pelvis: Back: no CVA tenderness Skin: General skin exam: elasticity normal and turgor normal Neuro: General: oriented to person, oriented to place, oriented to time, patient oriented x3, moves all extremities, no focal motor deficits and CN's II-XI intact bilaterally Cranial nerves: Yes Equal, round and reactive pupils present Cognition (Neuro): normal cognition Extrem: General: Yes full ROM, Yes no pedal edema and Yes no calf tenderness Psych: Mental Status: mental status grossly normal Affect: normal affect Thought process: Normal thought process present Course Course Course Narrative: 23 yo female with PMH of thyroiditis, gastritis here with c/o vaginal pain, discharge, sores, she has hot flashes, + nausea. No new partners, no OCPs or IUD, prior TOA on IV abx - she is worried it is back. At this time will obtain labs and US of pelvis along with gold STI panel. Has not had herpes before. this is a RAPID medical screening exam the rest of the history and physical exam is to be done by the main provider. DEBORAH 5/21/25 1151am Medications Administered Discontinued Medications Generic Name Dose Route Start Last Admin Trade Name Loren PRN Reason Stop Dose Admin Acetaminophen 650 mg 08/09/24 14:31 08/09/24 15:07 Acetaminophen 325 Mg Tablet PO 08/09/24 14:32 650 mg ONCE ONE Administration Ceftriaxone Sodium 500 mg/ 0 mg 08/09/24 14:27 08/09/24 15:09 Lidocaine HCl 1 ml IM 08/09/24 14:28 500 kit ONCE ONE Administration Doxycycline Monohydrate 100 mg 08/09/24 14:27 08/09/24 15:07 Doxycycline Monohydrate 100 Mg Capsule PO 08/09/24 14:28 100 mg ONCE ONE Administration Ibuprofen 600 mg 08/09/24 14:31 08/09/24 15:07 Ibuprofen 600 Mg Tablet PO 08/09/24 14:32 600 mg ONCE ONE Administration Valacyclovir HCl 1,000 mg 08/09/24 14:27 08/09/24 15:07 Valacyclovir Hcl 1,000 Mg Tablet PO 08/09/24 14:28 1,000 mg ONCE ONE Administration Medical Decision Making Medical Decision Making MDM Narrative: Patient is a 23-year-old female with history of TOA presenting to the emergency department with complaint of vaginal pain and abnormal discharge, this morning noted sores. On exam patient is awake, A+Ox3, VS WNL, afebrile, normal neurological exam without focal deficits, physical exam findings as above. Given reported symptoms and physical exam findings, initial differential includes but is not limited to TOA, STI, UTI. Labs unremarkable. UA notable for 1+ leukocytes, 2+ blood. Do not suspect UTI. U/S notable for no evidence of TOA. My interpretation is in agreement with the radiologist's interpretation. Results discussed with patient and all questions answered. Physical exam consistent with HSV infection, will also prophylactically treat with ceftriaxone and doxycycline. Discussed with patient that she should inform all sexual partners of her results, abstain from intercourse for 7 days following treatment with antibiotics. Return precautions discussed. Follow up with PCP as needed. Patient verbalized understanding of and agreement with plan. Differential Diagnosis Differential Diagnoses: The differential diagnosis associated with the presentation includes as per mdm Admission/Observation Consideration of admission/observation: Escalation of care including admission/observation considered Patient would have been admitted to the hospital had their work up had any findings where hospital admission was appropriate and their clinical presentation warranted hospital admission. Lab Data [facility] Lab Attestation statement: I reviewed the patient's lab results. as per [facility] 08/09/24 12:12 08/09/24 12:12 Labs: Lab Results 08/09/24 08/09/24 08/09/24 Range/Units 12:12 12:47 14:36 WBC 6.2 (4.8-10.8) X10*3/uL RBC 5.02 (4.20-5.50) X10*6/uL Hgb 14.7 (12.0-16.0) g/dl Hct 43.3 (37.0-47.0) % MCV 86.3 (80.0-98.0) fL MCH 29.3 (27.0-33.0) pg MCHC 33.9 (31.0-35.0) g/dl RDW 13.2 (11.0-16.0) % Plt Count 163 D (160-400) X10*3/uL MPV 9.4 (9.4-12.3) fL Immature Gran % (Auto) 0.2 (0.0-0.4) % Neut % (Auto) 66.9 (45-73) % Lymph % (Auto) 22.8 (20-40) % Potter % (Auto) 9.9 (2-11) % Eos % (Auto) 0.2 (0-4) % Baso % (Auto) 0.0 (0-2) % Lymph # (Auto) 1.4 (1.2-4.9) X10*3/uL Potter # (Auto) 0.6 (0.1-1.2) X10*3/uL Eos # (Auto) 0.0 (0.0-0.4) X10*3/uL Baso # (Auto) 0.0 (0.0-0.2) X10*3/uL Abs Immat Gran (auto) 0.01 (0.00-0.03) X10*3/uL Absolute Neuts (auto) 4.2 (2.0-8.3) x10*3/uL Absolute Nucleated RBC 0.000 (0.0-0.012) X10*3/uL Nucleated RBC % (auto) 0.0 (0.0-0.2) /100WBC Sodium 138 (135-145) mmol/L Potassium 3.8 (3.3-5.1) mmol/L Chloride 102 (96-108) mmol/L Carbon Dioxide 28 (22-29) mmol/L Anion Gap 12 (12-20) BUN 5 L (9-16) mg/dL Creatinine 0.71 (0.5-1.4) mg/dL Estim Creat Clear Calc 90.4 Estimated GFR > 60 Random Glucose 89 (60-115) mg/dL Calcium 9.2 (8.4-10.2) mg/dL Magnesium 2.0 (1.6-2.6) mg/dL Total Bilirubin 0.3 (0.0-1.0) mg/dL Direct Bilirubin 0.2 (0.0-0.5) mg/dL AST 22 (5-31) U/L ALT 26 (0-31) U/L Alkaline Phosphatase 75 (39-117) U/L Total Protein 7.5 (6.5-8.0) g/dL Albumin 4.7 (3.5-5.0) g/dL Lipase 11 (8-78) U/L TSH 0.34 (0.32-4.0) uIU/mL Beta HCG, Quant < 2 mIU/mL Urine Color Yellow Urine Appearance Clear Urine pH 6.0 (5.0-9.0) Ur Specific [place] 1.015 (1.005-1.025) Urine Protein Negative (Neg-Trace) mg/dL Urine Glucose (UA) Negative (Negative) mg/dL Urine Ketones Negative (Negative) mg/dL Urine Blood Moderate (2+) H (Negative) Urine Nitrite Negative (Negative) Ur Leukocyte Esterase Small (1+) H (Negative) Urine RBC 3-5 H (0-2) /HPF Urine WBC 0-5 (0-5) /HPF Ur Squamous Epith Cells 0-2 (0-2) /HPF Urine Bacteria Trace (None Seen) Hyaline Casts 0-2 (0-2) /LPF Urine Test NEGATIVE (NEGATIVE) Chlam trachomat DNA PCR NOT DETECTED (Not Detect.) N.gonorrhoeae DNA (PCR) NOT DETECTED (Not Detect.) T. vaginalis (PCR) NOT DETECTED (Not Detect) Bact vaginosis (PCR) NEGATIVE (Negative) C. krusei/glabrata (PCR) NOT DETECTED (Not Detect) Rachel group (PCR) NOT DETECTED (Not Detect) Independent Interpretation I performed an independent interpretation of an: Ultrasound Interpretation: No evidence of TOA on ultrasound Radiology Impression Discussion of test interpretation with radiology: I have reviewed the radiologist's reading. Radiologist Impression: US/US pelvic and transvaginal IMPRESSION: Normal pelvic ultrasound. No etiology seen for right pelvic pain. External Record Review External record reviewed: Inpatient record, Office record and Outpatient record Prescription Management I considered prescription management with: Antiviral and Antibiotic Discharge Plan Discharge Clinical Impression: Genital herpes Patient Disposition: Home, Self-Care Instructions: Genital Herpes Infection (ED), Sexually Transmitted Diseases (ED) Additional Instructions: You were found to have a sexually transmitted infection or concern for sexually transmitted infection on your visit today. You were given medications to treat you in the Emergency Department but if you were given antibiotics to take at home it is important you finish all these medications. Your sexual partners need to be advised they should seek care as well. It is important you abstain from sexual activity while you are on your antibiotics or having active symptoms. We will notify you of any POSITIVE pending results. For further testing including HIV and follow up for your visit you can reach out to your primary care doctor, [facility], or [facility]. [facility] [place] [phone] [place] [address] [phone] Prescriptions: New valacyclovir 1 gram tablet 1,000 mg PO BID Qty: 19 0RF doxycycline hyclate 100 mg capsule 100 mg PO BID Qty: 13 0RF No Action ibuprofen 400 mg tablet 400 mg PO Q6H PRN (Reason: pain) Qty: 20 0RF cefpodoxime 200 mg tablet 200 mg PO BID 10 Days Qty: 20 0RF Rx Instructions: must administer with a meal/food cefuroxime axetil 250 mg tablet 250 mg PO BID 5 Days Qty: 10 0RF Interventions: ED Discharge Assessment Last Done: 08/09/24 15:22 Discharge Date/Time: 08/09/24 15:25 Print Language: Spanish
[2024-08-09 12:17] LABS: MANUAL DIFF FLAG NO
[2024-08-09 12:20] LABS: Eosinophils Percent Auto 0.2 % (0-4); Hematocrit 43.3 % (37.0-47.0); Hemoglobin 14.7 g/dl (12.0-16.0); Imm Gran Abs Auto 0.01 X10*3/uL (0.00-0.03); Imm Gran Pct Auto 0.2 % (0.0-0.4); Lymphocytes Absolute Auto 1.4 X10*3/uL (1.2-4.9); Lymphocytes Percent Auto 22.8 % (20-40); Mean Corpuscular HGB Conc 33.9 g/dl (31.0-35.0); Mean Corpuscular Hemoglobin 29.3 pg (27.0-33.0); Mean Corpuscular Volume 86.3 fL (80.0-98.0); Mean Platelet Volume 9.4 fL (9.4-12.3); Monocytes Absolute Auto 0.6 X10*3/uL (0.1-1.2); Monocytes Percent Auto 9.9 % (2-11); Neutrophils Absolute Auto 4.2 x10*3/uL (2.0-8.3); Neutrophils Percent Auto 66.9 % (45-73); Platelet Count 163 X10*3/uL (160-400); Red Blood Count 5.02 X10*6/uL (4.20-5.50); Red Cell Distribution Width 13.2 % (11.0-16.0); White Blood Count 6.2 X10*3/uL (4.8-10.8)
[2024-08-09 12:51] LABS: Alanine Aminotransferase 26 U/L (0-31); Alkaline Phosphatase 75 U/L (39-117); Anion Gap 12 (12-20); Aspartate Amino Transferase 22 U/L (5-31); Bilirubin Direct 0.2 mg/dL (0.0-0.5); Blood Urea Nitrogen 5 mg/dL (9-16); Calcium 9.2 mg/dL (8.4-10.2); Carbon Dioxide 28 mmol/L (22-29); Chloride 102 mmol/L (96-108); Glucose Random 89 mg/dL (60-115); HCG Quantitative < 2 mIU/mL; Lipase 11 U/L (8-78); Potassium 3.8 mmol/L (3.3-5.1); Sodium 138 mmol/L (135-145); Total Protein 7.5 g/dL (6.5-8.0)
[2024-08-09 12:53] LABS: Appearance Urine Clear; Color Urine Yellow; Glucose Urine UA Negative (Negative); Leukocyte Esterase Urine Small (1+) (Negative); Nitrite Urine Negative (Negative); Specific Gravity - Urine 1.015 (1.005-1.025); UMIC TRIGGER UACC YES; Urine Blood Moderate (2+) (Negative); Urine Ketones Negative (Negative); Urine Protein Negative (Neg-Trace)
[2024-08-09 12:55] LABS: UPreg QC Valid YES; Urine Pregnancy NEGATIVE (NEGATIVE)
[2024-08-09 13:04] LABS: Bacteria Urine Trace (None Seen); Hyaline Casts Urine 0-2 /LPF (0-2); Squamous Epithelial Cell Urine 0-2 /HPF (0-2); UACC Culture Trigger YES; WBC Urine 0-5 /HPF (0-5)
[2024-08-09 13:05] LABS: TSH reflex Free T4 0.34 uIU/mL (0.32-4.0)
--- OUTSIDE RECORDS SUMMARY | 2024-08-09 13:17 | XMS_ITS | Clinical Summary ---
Author Organization [facility] Address [address] [place] [address] Care Team Providers Care Pipefitter Name Role Phone Unavailable Primary Care Provider Unavailabl e Surgical History Surgery Date Site/Laterality Comments OTHER SURGICAL HISTORY PROCEDURE: WI LAPS SURG CHOLECYSTECTOMY W/CHOLANGIOGRAPHY Medical History Medical History Date Comments Gallstones DX:Gallstones Family History Medical History Relation Name Comments Diabetes Aunt 2 maternal Diabetes Brother twin Other: heart disease Maternal Grandfather Diabetes Maternal Grandmother Other: heart disease Maternal Grandmother Relation Name Status Comments Aunt 2 maternal Alive Brother twin Alive Maternal Grandfather Maternal Grandmother Social History Tobacco Use Types Packs/Day Years Used Date Smoking Tobacco: Never Smokeless Tobacco: Never Alcohol Use Standard Drinks/Week Comments Never 0 (1 standard drink = 0.6 oz pur e alcohol) Comments Unknown Sex and Gender Information Value Date Recorded Sex Assigned at Not on file Legal Sex Female 12:43 AM EST Gender Identity Not on file Sexual Orientation Not on file Obstetrics History Plan of Treatment Health Maintenance Due Date Last Done Comments Gonorrhea/Chlamydia Screening 1999 HPV Vaccines (1 - 3-dose series) 08/26/2014 DTaP,Tdap,and Td Vaccines (1 - Tdap) 08/26/2018 Hepatitis B Vaccines (1 of 3 - 19+ 3-dose series) 08/26/2018 Cervical Cancer Screening: P ap Smear 08/26/2020 Depression Screening 02/22/2022 HIV Screening 02/22/2022 Hepatitis C Screening 02/22/2022 Social Influencers of Health Screening 02/22/2022 COVID-19 Vaccine ( - 2023-2 5 season) 2023 Influenza Vaccine (Season Ended) 2024 HIB Vaccines Aged Out No longer eligi ble based on patient's age to complete this topic Hepatitis A Vaccines Aged Out No long er eligible based on patient's age to complete this topic IPV Vaccines Aged Out No longer eligi ble based on patient's age to complete this topic MMR Vaccines Aged Out No longer eligi ble based on patient's age to complete this topic Meningococcal ACWY Vaccine Aged Out N o longer eligible based on patient's age to complete this topic Meningococcal B Vaccine Aged Out No l onger eligible based on patient's age to complete this topic Pneumococcal Vaccine: Pediat rics (0 to 5 Years) and At-Risk Patients (6 to 64 Years) Aged Out No longer eligible b ased on patient's age to complete this topic RSV Immunization Patients Un pelon 20 months Aged Out No longer eligible b ased on patient's age to complete this topic Varicella Vaccines Aged Out No longer eligible based on patient's age to complete this topic
[2024-08-09 14:09] LABS: Albumin Level 4.7 g/dL (3.5-5.0); Bilirubin Total 0.3 mg/dL (0.0-1.0); Creatinine Clr Calc Pharmacy 90.4; Estimated Glomerular Filt Rate > 60
[2024-08-09 14:38] VITALS: BP 106/75; PULSE 74; RESP 14; TEMP 36.9; O2SAT 98
[2024-08-09] MEDS: valACYclovir HCL 1,000 MG TABLET 1000 MG PO (15:07)
[2024-08-09] MEDS: Ibuprofen 600 MG TABLET PO (15:07)
[2024-08-09] MEDS: Doxycycline Monohydrate 100 MG CAPSULE PO (15:07)
[2024-08-09] MEDS: Acetaminophen 325 MG TABLET 650 MG PO (15:07)
[2024-08-09] MEDS: cefTRIAXone sodium 500 MG, Lidocaine HCl 1 % MPF 1 ML IM (15:09)
--- NOTE | 2024-08-09 15:20 | PC.NURSE ---
This RN assisted with pelvic exam; pt tolerated well, but reported increased vaginal discomfort; pt medicated per orders; no vag. bleeding noted during exam
[2024-08-09 15:22] VITALS: BP 106/75; PULSE 74; RESP 14; TEMP 36.9; O2SAT 98
[2024-08-09 15:42] LABS: Bacterial Vaginosis PCR NEGATIVE (Negative); Candida Group PCR NOT DETECTED (Not Detect); Candida glab krusei PCR NOT DETECTED (Not Detect); Trichomonas vaginalis PCR NOT DETECTED (Not Detect)
[2024-08-09 16:12] LABS: CT PCR NOT DETECTED (Not Detect.); NG PCR NOT DETECTED (Not Detect.)
== END 2024-08-09 15:25 | disposition home or self-care (01) ==
PROVIDERS: Emergency Medicine; Physician Assistant; Emergency Provider Emergency Medicine; PCP Student in an Organized Health Care Education/Training Program
DX: A60.04 Herpesviral vulvovaginitis (principal); R10.2 Pelvic and perineal pain; N89.8 Other specified noninflammatory disorders of vagina
CPT/HCPCS: 36415; 76830; 76856; 80048; 80076; 81001; 81025; 81515; 83690; 83735; 84443; 84702; 85025; 87086; 87491; 87591; 96372; 99284; J0696; J2003

== ENCOUNTER → 2024-08-09 11:51 | Outpatient (BNV) | payer MEDICAID, SELFPAY | PROVIDERS: Emergency Provider Emergency Medicine; PCP Student in an Organized Health Care Education/Training Program; Visit Provider Radiology Diagnostic Radiology | DX: R10.2 Pelvic and perineal pain (principal) | CPT/HCPCS: 76830; 76856 ==

== ENCOUNTER 2024-10-04 16:27 | Emergency (ER) | payer MEDICAID, SELFPAY ==
--- NOTE | ~2024-10-04 | US_ITS ---
CLINICAL HISTORY: +home preg test, spotting, R>L abd pain US OB 1st Trimester transabdominal and transvaginal with Doppler Comparison: None provided Findings: Single intrauterine . CRL: 2.1 mm. EGA: 5 weeks, 6 days. TASH: May 31, 2025. Previously established gestational age: N/A . Normal yolk sac . Cardiac activity: [Detected No subchorionic bleed. The right ovary measures 4.3 x 2.1 x 2.0 cm and exhibits a 1.6 x 2.1 x 1.2 cm corpus luteum. The left ovary measures 2.0 x 1.3 x 1.3 cm. Normal color Doppler with arterial/venous spectral tracing of both ovaries. IMPRESSION: 1. Single intrauterine estimated 5 weeks, 6 days gestational age by today's ultrasound criteria. No cardiac activity at demonstrated, likely related to very early . Continued follow-up. 2. No evidence of ovarian torsion. This document has been electronically signed by: Khris Bustillo MD on 10/04/2024 20:38:56
[2024-10-04 17:15] VITALS: BP 140/90; PULSE 65; RESP 16; TEMP 36.8; O2SAT 96; BMI 20.3
--- NOTE | 2024-10-04 17:16 | ED.ABDPAIN ---
HPI - Abdominal Pain General Chief Complaint: OB Stated Complaint: R Lower Abd Pain, Spotting Time Seen by Provider: 10/04/24 23:48 Source: patient Mode of arrival: ambulatory Limitations: no limitations History of Present Illness ED Provider: Fernando CAMPA HPI narrative: The patient is a female presenting to the ED reporting she had a positive test approximately 2 weeks ago. Patient reports she has been experiencing intermittent cramping on the right side however today she also developed associated spotting and cramping was more persistent. The patient denies passage of tissue, denies associated nausea, vomiting, dysuria, hematuria, fever/chills, or other acute complaint. The patient denies history of bleeding with previous pregnancies. Related Data Previous Rx's ?Medication ?Instructions ?Recorded ibuprofen 400 mg tablet 400 mg PO Q6H PRN pain #20 tabs 12/21/21 cefpodoxime 200 mg tablet 200 mg PO BID 10 days #20 tabs 05/17/22 cefuroxime axetil 250 mg tablet 250 mg PO BID 5 days #10 tabs 09/26/22 doxycycline hyclate 100 mg capsule 100 mg PO BID #13 caps 08/09/24 valacyclovir 1 gram tablet 1,000 mg PO BID #19 tabs 08/09/24 cephalexin 500 mg capsule 500 mg PO TID #15 caps 10/05/24 Allergies Allergy/AdvReac Type Severity Reaction Status Date / Time amoxicillin Allergy Rash Verified 10/04/24 17:17 Review of Systems Review of Systems Yes all other systems are reviewed and are negative PMFSH Social History Social History Alcohol intake: never Smoked in Last 30 Days: No Use of substances other than those prescribed or required for medical reasons: Yes Substance Use Type: Marijuana Advance Directives: No Advance Directives Information Provided: No Do you have a plan to hurt others: No Plan Patient : Yes Physical Exam ED Vital Signs: Vital Signs - 24 hr 10/04/24 17:15 10/04/24 21:24 10/05/24 00:30 Temperature 98.2 F 98.8 F Pulse Rate 65 71 71 Respiratory Rate 16 18 18 Blood Pressure 140/90 H 114/78 105/69 Pulse Oximetry 96 100 99 Oxygen Delivery Method Room Air Room Air Room Air BMI result Body Mass Index 20.3 CONSTITUTIONAL: The patient appears non-toxic, well nourished and in no acute distress. Vital signs as documented. HEAD: Atraumatic, normocephalic. EYES: EOMs grossly intact, pupils equal, conjunctiva clear, no exudate. ENT: Nares patent, no discharge. Airway patent, no audible stridor, visible mucosa is pink and moist without noted lesions. NECK: Trachea is midline, no obvious masses or gross abnormalities. CHEST: Symmetric movement, normal appearance. LUNGS: LS present and CTAB, no w/r/r. Non-labored work of breathing. CARDIAC: Regular Rhythm, S1/S2 appreciated, no murmurs, rubs or gallops. ABDOMEN: Abdomen soft and non-tender x4 quadrants, no palpable masses or organomegaly. : Deferred. EXTREMITIES: Normal tone, moves all extremities spontaneously without reported pain. No obvious acute injury or deformity noted. NEURO: Alert and oriented x3, CN II-XII appear grossly intact. Cerebellar Functioning grossly intact. No obvious sensory or motor deficits. Speech clear and appropriate. PSYCH: normal affect, appropriate eye contact, fluid speech, with appropriate response to questioning. No reported suicidality or homicidality. SKIN: Warm, dry, color appropriate, normal turgor. No rashes noted. Course Course Course Narrative: 10/04/241715 LOKESH [place] This is a Rapid Medical Examination (RME) performed by Nicolas Cardenas PA-C in triage. Full HPI, ROS, assessment and treatment plan per primary provider in the Main ED. Hx: 24 yo F A2, positive home preg test 2.5 wks ago, here w/ abdominal cramping (R>L) and spotting x today. LMP 08/31/24. has OB appointment for preg confirmation on 10/16/24. Plan: labs, UA, US Medical Decision Making Medical Decision Making MDM Narrative: 12:21 AM 10/05/2024 (Nicolas CAMPA): The patient is a 24-year-old female presenting to the ED for evaluation of vaginal spotting with associated cramping in the setting of a positive test 2 weeks ago. In the ED patient appears nontoxic, abdominal exam is nontender. The patient's laboratory evaluation reveals hCG quantitative of 5559, ultrasound obtained reveals a single intrauterine gestation of 5 weeks 6 days, no visible heartbeat however this may be due to early gestation. No other acute findings, no subchorionic bleed. The patient's laboratory evaluation shows no evidence of leukocytosis, anemia, electrolyte abnormality, or SAM. The patient's urinalysis does show small leukocyte esterase, WBCs, and 2+ bacteria. Patient's UA has 20+ squamous epithelial cells which may indicate contamination however in the setting of bacteriuria in we will treat prophylactically for bacteriuria. We will add on Rh testing and treat with RhoGAM as indicated. 1:49 AM 10/05/2024 (Nicolas CAMPA): The patient was able to find previous blood type testing on her patient portal which indicates she is Rh positive. Patient reports she does not wish to wait for repeat Rh testing for RhoGAM. The patient will be treated with cephalexin and discharged. Lab Data MDM Lab Attestation statement: I reviewed the patient's lab results. 10/04/24 17:23 10/04/24 17:23 Labs: Lab Results 10/04/24 10/04/24 Range/Units 17:23 21:35 WBC 7.5 (4.8-10.8) X10*3/uL RBC 4.44 (4.20-5.50) X10*6/uL Hgb 13.0 (12.0-16.0) g/dl Hct 37.9 (37.0-47.0) % MCV 85.4 (80.0-98.0) fL MCH 29.3 (27.0-33.0) pg MCHC 34.3 (31.0-35.0) g/dl RDW 14.1 (11.0-16.0) % Plt Count 216 D (160-400) X10*3/uL MPV 9.3 L (9.4-12.3) fL Immature Gran % (Auto) 0.3 (0.0-0.4) % Neut % (Auto) 60.0 (45-73) % Lymph % (Auto) 32.6 (20-40) % [place] % (Auto) 6.1 (2-11) % Eos % (Auto) 0.9 (0-4) % Baso % (Auto) 0.1 (0-2) % Lymph # (Auto) 2.4 (1.2-4.9) X10*3/uL [place] # (Auto) 0.5 (0.1-1.2) X10*3/uL Eos # (Auto) 0.1 (0.0-0.4) X10*3/uL Baso # (Auto) 0.0 (0.0-0.2) X10*3/uL Abs Immat Gran (auto) 0.02 (0.00-0.03) X10*3/uL Absolute Neuts (auto) 4.5 (2.0-8.3) x10*3/uL Absolute Nucleated RBC 0.000 (0.0-0.012) X10*3/uL Nucleated RBC % (auto) 0.0 (0.0-0.2) /100WBC Sodium 138 (135-145) mmol/L Potassium 3.6 (3.3-5.1) mmol/L Chloride 106 (96-108) mmol/L Carbon Dioxide 28 (22-29) mmol/L Anion Gap 8 L (12-20) BUN 6 L (9-16) mg/dL Creatinine 0.63 (0.5-1.4) mg/dL Estim Creat Clear Calc 102.9 Estimated GFR > 60 Random Glucose 93 (60-115) mg/dL Calcium 9.0 (8.4-10.2) mg/dL Magnesium 1.9 (1.6-2.6) mg/dL Total Bilirubin 0.4 (0.0-1.0) mg/dL AST 20 (5-31) U/L ALT 24 (0-31) U/L Alkaline Phosphatase 49 (39-117) U/L Total Protein 6.5 (6.5-8.0) g/dL Albumin 4.3 (3.5-5.0) g/dL Beta HCG, Quant 5559 mIU/mL Urine Color Yellow Urine Appearance Cloudy Urine pH >= 9.0 (5.0-9.0) Ur Specific [place] 1.015 (1.005-1.025) Urine Protein Negative (Neg-Trace) mg/dL Urine Glucose (UA) Negative (Negative) mg/dL Urine Ketones Negative (Negative) mg/dL Urine Blood Negative (Negative) Urine Nitrite Negative (Negative) Ur Leukocyte Esterase Small (1+) H (Negative) Urine RBC 0-2 (0-2) /HPF Urine WBC 11-20 H (0-5) /HPF Ur Squamous Epith Cells >20 (0-2) /HPF Urine Bacteria 2+ (None Seen) Hyaline Casts 0-2 (0-2) /LPF Radiology Impression Discussion of test interpretation with radiology: I have reviewed the radiologist's reading. Radiologist Impression: CLINICAL HISTORY: +home preg test, spotting, R>L abd pain US OB 1st Trimester transabdominal and transvaginal with Doppler Comparison: None provided Findings: Single intrauterine . CRL: 2.1 mm. EGA: 5 weeks, 6 days. TASH: May 31, 2025. Previously established gestational age: N/A . Normal yolk sac . Cardiac activity: [Detected No subchorionic bleed. The right ovary measures 4.3 x 2.1 x 2.0 cm and exhibits a 1.6 x 2.1 x 1.2 cm corpus luteum. The left ovary measures 2.0 x 1.3 x 1.3 cm. Normal color Doppler with arterial/venous spectral tracing of both ovaries. IMPRESSION: 1. Single intrauterine estimated 5 weeks, 6 days gestational age by today's ultrasound criteria. No cardiac activity at demonstrated, likely related to very early . Continued follow-up. 2. No evidence of ovarian torsion. This document has been electronically signed by: Khris Bustillo MD on 10/04/2024 20:38:56 Prescription Management I considered prescription management with: Antibiotic Discharge Plan Discharge Clinical Impression: Bleeding in early Patient Disposition: Home, Self-Care Instructions: Threatened Miscarriage (ED) Additional Instructions: Thank you for choosing [facility]'s Emergency Department for your care today. Thankfully your hormone level an ultrasound today show a intrauterine consistent with your gestational dates. At this time there is no evidence of an acute process requiring admission to the hospital or continued ED observation, and it is safe to discharge you home. Even though your bleeding has resolved, you must follow up with your OBGYN in 48 hours for a repeat hormone level and consideration of a repeat ultrasound to ensure you are not experiencing an early threatened miscarriage. Your urinalysis showed evidence of bacteria, we are treating you for asymptomatic bacteriuria in with cephalexin, please take this as directed until it is finished. You may take Tylenol every 6 hours as needed for additional cramping or pain. Please also follow up with your primary care physician for re-evaluation, additional management of your symptoms, and continued preventative care. If you do not have a primary care physician, please call the [facility] at [phone] to establish a new primary care physician. While waiting to establish your new primary care physician, you can call our [facility] at [phone] for non-emergency needs. Please return to the emergency department if you develop a severe or sudden change in your symptoms, a fever over 100.4 that does not improve with Tylenol or Ibuprofen, recurrent vomiting, or any other new or worsening symptoms or concerns. Prescriptions: New cephalexin 500 mg capsule 500 mg PO TID Qty: 15 0RF No Action ibuprofen 400 mg tablet 400 mg PO Q6H PRN (Reason: pain) Qty: 20 0RF cefpodoxime 200 mg tablet 200 mg PO BID 10 Days Qty: 20 0RF Rx Instructions: must administer with a meal/food valacyclovir 1 gram tablet 1,000 mg PO BID Qty: 19 0RF doxycycline hyclate 100 mg capsule 100 mg PO BID Qty: 13 0RF cefuroxime axetil 250 mg tablet 250 mg PO BID 5 Days Qty: 10 0RF Referrals: Roxanne Raymond MD [Primary Care Provider, Family Practice] Clinical Impression: Bleeding in early Xiang Sullivan MD [Physician, [employer]] Clinical Impression: Bleeding in early Print Language: Amharic
[2024-10-04 17:27] LABS: MANUAL DIFF FLAG NO
[2024-10-04 17:37] LABS: Hematocrit 37.9 % (37.0-47.0); Hemoglobin 13.0 g/dl (12.0-16.0); Imm Gran Abs Auto 0.02 X10*3/uL (0.00-0.03); Imm Gran Pct Auto 0.3 % (0.0-0.4); Lymphocytes Absolute Auto 2.4 X10*3/uL (1.2-4.9); Mean Corpuscular HGB Conc 34.3 g/dl (31.0-35.0); Mean Corpuscular Hemoglobin 29.3 pg (27.0-33.0); Mean Corpuscular Volume 85.4 fL (80.0-98.0); NRBC Abs Auto 0.000 X10*3/uL (0.0-0.012); NRBC Pct Auto 0.0 /100WBC (0.0-0.2); Platelet Count 216 X10*3/uL (160-400); Red Blood Count 4.44 X10*6/uL (4.20-5.50); White Blood Count 7.5 X10*3/uL (4.8-10.8)
[2024-10-04 17:42] LABS: Alanine Aminotransferase 24 U/L (0-31); Albumin Level 4.3 g/dL (3.5-5.0); Alkaline Phosphatase 49 U/L (39-117); Anion Gap 8 (12-20); Aspartate Amino Transferase 20 U/L (5-31); Blood Urea Nitrogen 6 mg/dL (9-16); Calcium 9.0 mg/dL (8.4-10.2); Carbon Dioxide 28 mmol/L (22-29); Chloride 106 mmol/L (96-108); Creatinine Clr Calc Pharmacy 102.9; Estimated Glomerular Filt Rate > 60; Magnesium 1.9 mg/dL (1.6-2.6); Potassium 3.6 mmol/L (3.3-5.1); Sodium 138 mmol/L (135-145); Total Protein 6.5 g/dL (6.5-8.0)
[2024-10-04 21:24] VITALS: BP 114/78; PULSE 71; RESP 18; O2SAT 100
[2024-10-04 21:43] LABS: Appearance Urine Cloudy; Glucose Urine UA Negative (Negative); PH >= 9.0 (5.0-9.0); Specific Gravity - Urine 1.015 (1.005-1.025); UMIC TRIGGER UACC YES
[2024-10-04 22:09] LABS: UACC Culture Trigger YES
[2024-10-05 00:30] VITALS: BP 105/69; PULSE 71; RESP 18; TEMP 37.1; O2SAT 99
--- NOTE | 2024-10-05 01:45 | PC.NURSE ---
Pt requesting to be discharge, refused blood work. Provider Nicolas Hunt made aware, plan for D/C.
[2024-10-05 02:04] VITALS: BP 00/00; PULSE 0; RESP 18; TEMP -17.7; TEMP 0
== END 2024-10-05 02:05 | disposition home or self-care (01) ==
PROVIDERS: Physician Assistant Medical; Emergency Provider Emergency Medicine; PCP Student in an Organized Health Care Education/Training Program
DX: O20.9 Hemorrhage in early pregnancy, unspecified (principal); Z3A.01 Less than 8 weeks gestation of pregnancy; Z79.899 Other long term (current) drug therapy; R10.2 Pelvic and perineal pain
CPT/HCPCS: 36415; 76801; 76817; 80053; 81001; 83735; 84702; 85025; 87086; 99284

== ENCOUNTER → 2024-10-04 17:20 | Outpatient (BNV) | payer MEDICAID, SELFPAY | PROVIDERS: PCP Student in an Organized Health Care Education/Training Program; Visit Provider Radiology Vascular & Interventional Radiology | DX: O26.851 Spotting complicating pregnancy, first trimester (principal) | CPT/HCPCS: 76801; 76817 ==